=== PATIENT | male | born 1970 | race Two or more races ===

== ENCOUNTER 2019-02-03 08:54 | Emergency (ER) | payer OTHER ==
[~2019-02-03] VITALS: Ht 172.7 cm; Wt 63.5 kg
[~2019-02-03 08:54] MED LIST: ALLEGRA ALLERG180 MG PO; FLONASE16 GM NS
== END 2019-02-03 10:15 | disposition home or self-care (01) ==
LOC: ER 08:54
DX: S81.822A Laceration with foreign body, left lower leg, initial encounter (principal); W45.8XXA Other foreign body or object entering through skin, initial encounter; Y93.89 Activity, other specified; Y92.89 Other specified places as the place of occurrence of the external cause; Y99.8 Other external cause status

== ENCOUNTER → 2019-02-13 | Emergency (ER) | payer OTHER ==
[~2019-02-13] VITALS: Ht 172.7 cm; Wt 63.5 kg
== END | disposition home or self-care (01) ==
LOC: ER 08:42
DX: Z48.02 Encounter for removal of sutures (principal)

== ENCOUNTER → 2025-03-05 | Emergency (ER) | payer OTHER ==
[~2025-03-05] VITALS: Ht 172.7 cm; Wt 67.1 kg
[~2025-03-05] MED LIST changes: +CEFTRIAXONE SODIUM 1,000 MG VIAL IM ONE; +CEFTRIAXONE SODIUM 1,000 MG VIAL ONE; +CEFUROXIME500 MG PO; +DIPHTH,PERTUSS(ACELL),TET VAC 0.5 ML SYRINGE IM ONE; +LIDOCAINE HCL 1% 10ML VIAL ONE; +LIDOCAINE HCL 1% 10ML VIAL PERCUT ONE; +PEPCID AC20 MG PO; +TAMS0.4C; +TETANUS & DIPHTHERIA TOX,ADULT 0.5 ML VIAL IM ONE
== END | disposition home or self-care (01) ==
LOC: ER 09:03
DX: S01.81XA Laceration without foreign body of other part of head, initial encounter (principal); S61.211A Laceration without foreign body of left index finger without damage to nail, initial encounter; X58.XXXA Exposure to other specified factors, initial encounter; Y93.18 Activity, surfing, windsurfing and boogie boarding; Y92.832 Beach as the place of occurrence of the external cause; Y99.9 Unspecified external cause status; N40.0 Benign prostatic hyperplasia without lower urinary tract symptoms; Z88.6 Allergy status to analgesic agent

== ENCOUNTER 2025-03-16 07:51 | Emergency (ER) | payer OTHER ==
[~2025-03-16] VITALS: Ht 172.7 cm; Wt 68.0 kg
[~2025-03-16 07:51] MED LIST changes: -CEFTRIAXONE SODIUM 1,000 MG VIAL IM ONE; -CEFTRIAXONE SODIUM 1,000 MG VIAL ONE; -DIPHTH,PERTUSS(ACELL),TET VAC 0.5 ML SYRINGE IM ONE; -LIDOCAINE HCL 1% 10ML VIAL ONE; -LIDOCAINE HCL 1% 10ML VIAL PERCUT ONE; -TETANUS & DIPHTHERIA TOX,ADULT 0.5 ML VIAL IM ONE
[2025-03-16 09:17] VITALS: BP 132/77; O2SAT 100
== END 2025-03-16 09:18 | disposition home or self-care (01) ==
LOC: ER 07:52
DX: Z48.02 Encounter for removal of sutures (principal); Z88.6 Allergy status to analgesic agent